=== PATIENT | male | born 1965 | race Native Hawaiian/Other Pacific Islander ===

== ENCOUNTER 2019-02-17 09:46 | Outpatient (CLI) | payer BC | END 2019-02-17 20:15 | disposition home or self-care (01) | LOC: MRI 09:46 | DX: G44.89 Other headache syndrome (principal) | CPT/HCPCS: A9576 ==

== ENCOUNTER 2019-10-27 10:58 | Outpatient (CLI) | payer BC | END 2019-10-27 19:11 | disposition home or self-care (01) | LOC: RAD 10:58 | DX: R05 Cough (principal) ==